=== PATIENT | male | born 1975 | race Two or more races ===

== ENCOUNTER 2022-09-02 02:15 | Emergency (ER) | payer OTHER ==
[~2022-09-02] VITALS: Ht 185.4 cm; Wt 104.3 kg
[2022-09-02] MEDS ORDERED: LOSARTAN-HCTZ1 EACH PO (02:33)
[2022-09-02] MEDS ORDERED: PROTONIX20 MG PO (02:34)
== END 2022-09-02 06:36 ==
LOC: ER 02:15
DX: I10 Essential (primary) hypertension (principal)